=== PATIENT | male | born 1955 | race Hispanic/Latino ===

== ENCOUNTER → 2017-12-23 | Day surgery (SDC) | payer OTHER ==
[2017-12-21 12:00] LABS: BASOPHILS % 0.3 % (0.0-1.0); EOSINOPHILS # (AUTO) 0.1 (0.0-0.4); EOSINOPHILS % 2.2 % (0.0-6.0); HEMOGLOBIN 13.3 g/dL (14.0-18.0); LYMPHOCYTES # (AUTO) 2.4 (1.0-3.2); LYMPHOCYTES % 37.1 % (18.0-39.1); MEAN CORPUSCULAR HEMOGLOBIN 28.7 pg (28-32); MEAN CORPUSCULAR HGB CONC 32.4 g/dL (31-35); MEAN CORPUSCULAR VOLUME 88.4 fL (81-99); MONOCYTES # (AUTO) 0.6 (0.2-0.8); MONOCYTES % 9.6 % (4.4-11.3); NEUTROPHILS # (AUTO) 3.3 (2.1-6.9); NEUTROPHILS % 50.6 % (38.7-80.0); PLATELET COUNT 266 x10e3/uL (140-360); RED BLOOD COUNT 4.64 x10e6/uL (4.3-5.7); RED CELL DISTRIBUTION WIDTH 12.7 % (11.7-14.4)
[2017-12-21 12:22] LABS: INR 0.99; PROTHROMBIN TIME 12.3 seconds (11.9-14.5)
[2017-12-21 12:31] LABS: ALANINE AMINOTRANSFERASE 12 IU/L (0-55); ALBUMIN 4.1 g/dL (3.5-5.0); ALBUMIN/GLOBULIN RATIO 1.3 (0.8-2.0); ALKALINE PHOSPHATASE 77 IU/L (40-150); ANION GAP 14.6 mmol/L (8-16); BLOOD UREA NITROGEN 19 mg/dL (7-26); BUN/CREATININE RATIO 22 (6-25); CALCIUM 9.3 mg/dL (8.4-10.2); CARBON DIOXIDE 23 mmol/L (22-29); CHLORIDE 106 mmol/L (98-107); CREATININE, SERUM 0.88 mg/dL (0.72-1.25); EST GLOMERULAR FILTRATION RATE > 60 ML/MIN (60-); GLUCOSE 100 mg/dL (74-118); POTASSIUM 4.6 mmol/L (3.5-5.1); SODIUM 139 mmol/L (136-145)
--- NOTE | 2017-12-21 12:56 | Diagnostic Imaging Report ---
EXAMINATION: PA and lateral views of the chest. COMPARISON: None CLINICAL HISTORY: Preoperative study for circumcision DISCUSSION: Lungs are well-inflated. No focal consolidation, pleural effusion, or pneumothorax. Tortuous thoracic aorta with atherosclerotic calcification. Otherwise normal cardiomediastinal contour. No acute osseous abnormalities. Degenerative disc changes of the lumbar spine partially visualized. IMPRESSION: No acute cardiopulmonary abnormality. Signed by: Dr. Nigel Martinez M.D. on 12/21/2017 12:51 PM
[~2017-12-23] MED LIST: ACETAMINOPHEN 1000 MG/100 ML IV ONE; BUPIVACAINE 0.25% 30ML SDV INJ ONE; CEFOXITIN SOD 1 GM VIAL ONE; DEXAMETHASONE SOD PHOS INJ 4 MG/ML VIAL ONE; FENTANYL CITRATE/PF 100MCG/2 ML INJ ONE; KEFLEX500 MG PO; KETOROLAC TROMETHAMINE 30 MG/ML VIAL ONE; LIDOCAINE HCL 2% LOCAL INJ 5 ML SDV VIAL INJ ONE; METFORMIN HCL500 MG PO; MIDAZOLAM HCL 2 MG/2 ML VIAL ONE; NEOSTIGMINE 1 MG/ML 10ML VIAL ONE; ONDANSETRON HCL INJ 2 MG/ML VIAL ONE; PROPOFOL IV EMULSION 10 MG/ML 20 ML VIAL ONE; SEVOFLURANE INHAL SOLN 250 ML PEN BTL ONE; SIMVASTATIN20 MG PO; TAMSULOSIN HCL0.4 MG; TYLENOL WITH C1 EACH PO
[2017-12-23 12:30] VITALS: BP 154/91
--- NOTE | 2017-12-23 16:01 | Operative Report ---
DATE OF PROCEDURE: December 23, 2017 PREOPERATIVE DIAGNOSIS: Phimosis. POSTOPERATIVE DIAGNOSIS: Phimosis. OPERATION PERFORMED: Adult circumcision. ANESTHESIA: General. INDICATIONS: This patient is a 62-year-old male has been having cracking on his foreskin and difficulty pulling his foreskin back. He is diabetic. He has a tight phimosis. For further details, please refer to the history and physical. The procedure was done in the following fashion. The patient was taken to the operating room and placed under general anesthesia, and dressed and draped with Hibiclens in the usual fashion. Initial examination of the penis revealed that it was very difficult to retract the prepuce. In fact, I could not retract it all the way, because there was scar tissue between the prepuce and the glans penis, especially around the anguiano. It was very, very dense in the region of the frenulum. The tissues in the frenulum were severely inflamed and hard. I worked around this area with a lacrimal duct gland in order to gently release the adhesions between the glans and anguiano, and the prepuce. Once this was accomplished, I then pulled the foreskin skin back over his glans, and marked the proximal incision with a marking pen to make sure I would not take off too much. I had made a circumferential incision with the scalpel, and controlled bleeding vessels with electrocautery. Once the proximal incision was made, I then pulled for foreskin back exposing the glans and especially the tight area around the frenulum. I felt that in order for this patient to have an adequate erection and to get an adequate circumcision, I would have to divide this thick frenulum. This was done by passing a mosquito clamp underneath the frenulum. The tissues were so tight I had to even use a scalpel on the opposite side to make an opening so I could push the hemostat through. Then I could spread it apart, and then I tied off the frenulum proximally and distally with 3-0 chromic and divided the frenulum. The tissues were very, very poor in this area. My next step was to use the marking pen to luis out the area for the distal incision. Once this was accomplished, I then made the incision with a scalpel and released the bands connecting the distal end of the penis to the prepuce. Once this was accomplished, I then went to the 12 o'clock position on the prepuce and placed hemostats proximally and distally. Then passed a Metzenbaum beneath the dorsal prepuce, and then divided the dorsal prepuce. The flap of skin for the sleeve was then removed with sharp Metzenbaum dissection. Electrocautery was maintained with the coagulation set at 30. I would lift up on the bleeding vessels with a hemostat and then bovied the vessels. This was made to make sure that I did not injure the urethra or any of the tissues underneath it. The skin was then closed in a 4-quadrant fashion using interrupted 3-0 chromic. Once the circumcision was completed, I checked to make sure that he had an adequate amount of length of skin for an erection, and I could pull on the glans penis and see that there more than enough skin present for him to have an erection. The base of the penis was anesthetized circumferentially with 0.25% Marcaine. A triple-antibiotic ointment and a dressing were applied. The patient tolerated the procedure well, and left the operating room in good condition. I spoke to the patient's using an operating room nurse for translation in Wolof. She was advised that he could take the bandage off tomorrow in the shoulder, and was the wounds with soap and water, and put Vaseline on his penis to make sure it does not stick to his clothing. He is being sent home on Keflex 500 mg p.o. 4 times a day, #40 and on Tylenol No. 3 one p.o. q.6 h. p.r.n. pain, #40. He will have a return appointment to see me again on Tuesday. The reason for the return appointment on Tuesday is his wants me to check him to make sure that he is well enough to leave him at home to go to work. He will not be going back to work for 2 weeks. I will let her know on Tuesday if he is well enough to be at home alone, or if she needs to be with him. The blood loss was minimal. The needle and sponge counts were correct. Job#: [id number] [place]
== END | disposition home or self-care (01) ==
LOC: OR 07:46
PROVIDERS: ATTEND Urology
DX: N47.1 Phimosis (principal); N48.0 Leukoplakia of penis; E11.9 Type 2 diabetes mellitus without complications; Z79.84 Long term (current) use of oral hypoglycemic drugs; K21.9 Gastro-esophageal reflux disease without esophagitis; E78.00 Pure hypercholesterolemia, unspecified; Z87.442 Personal history of urinary calculi; Z01.810 Encounter for preprocedural cardiovascular examination; Z01.812 Encounter for preprocedural laboratory examination; Z01.818 Encounter for other preprocedural examination
CPT/HCPCS: 36415 ×2; 54161; 71046; 80053; 82948; 85025; 85610; 85730; 88304; 93005; J0694; J1100; J1885; J2001; J2250; J2405; J2710